=== PATIENT | female | born 1995 | race Caucasian/White ===

== ENCOUNTER 2017-12-30 22:47 | Emergency (ER) | payer SELFPAY ==
--- NOTE | 2017-12-30 23:47 | EDPHYS ---
Physician Documentation [facility] Name: Edie Preciado Age: 22 yrs Sex: Female : 1995 Arrival Date: 12/30/2017 Time: 22:48 Bed 10 Private MD: ED Physician Luis Allred HPI: 12/30 23:53 This 22 yrs old Female presents to ER via Ambulatory with complaints of Mouth snw Problem. 23:53 The patient presents with pain. The problem is located in the upper left first molar. snw Onset: The symptoms/episode began/occurred suddenly, yesterday. Duration: The symptoms are continuous. Associated signs and symptoms: The patient has no apparent associated signs or symptoms. Severity of symptoms: At their worst the symptoms were moderate, severe. It is unknown whether or not the patient has had similar symptoms in the past. The patient has not recently seen a physician. 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 - Social history:: Smoking status: Patient/guardian denies using tobacco, Patient uses alcohol, occasionally. Patient/guardian denies using street drugs. - Ebola Screening: : No symptoms or risks identified at this time. ROS: 23:50 Constitutional: Negative for fever, chills, and weight loss, Eyes: Negative for injury, snw pain, redness, and discharge, Neck: Negative for injury, pain, and swelling, Cardiovascular: Negative for chest pain, palpitations, and edema, Respiratory: Negative for shortness of breath, cough, wheezing, and pleuritic chest pain, Back: Negative for injury and pain, : Negative for injury, bleeding, discharge, and swelling, MS/Extremity: Negative for injury and deformity, Skin: Negative for injury, rash, and discoloration, Neuro: Negative for headache, weakness, numbness, tingling, and seizure. 23:50 ENT: Positive for dental pain, of the upper left first molar, Teeth pain 23:50 Abdomen/GI: Positive for chronic abdominal pain and diarrhea. Exam: 23:50 Constitutional: This is a well developed, well nourished patient who is awake, alert, snw and in no acute distress. Head/Face: Normocephalic, atraumatic. Eyes: Pupils equal round and reactive to light, extra-ocular motions intact. Lids and lashes normal. Conjunctiva and sclera are non-icteric and not injected. Cornea within normal limits. Periorbital areas with no swelling, redness, or edema. ENT: Nares patent. No nasal discharge, no septal abnormalities noted. Tympanic membranes are normal and external auditory canals are clear. Oropharynx with no redness, swelling, or masses, exudates, or evidence of obstruction, uvula midline. Mucous membranes moist. 1st upper left molar with pain and decreased mass than other molars Neck: Trachea midline, no thyromegaly or masses palpated, and no cervical lymphadenopathy. Supple, full range of motion without nuchal rigidity, or vertebral point tenderness. No Meningismus. Chest/axilla: Normal chest wall appearance and motion. Nontender with no deformity. No lesions are appreciated. Cardiovascular: Regular rate and rhythm with a normal S1 and S2. No gallops, murmurs, or rubs. Normal PMI, no JVD. No pulse deficits. Respiratory: Lungs have equal breath sounds bilaterally, clear to auscultation and percussion. No rales, rhonchi or wheezes noted. No increased work of breathing, no retractions or nasal flaring. Abdomen/GI: Soft, non-tender, with normal bowel sounds. No distension or tympany. No guarding or rebound. No evidence of tenderness throughout. Back: No spinal tenderness. No costovertebral tenderness. Full range of motion. Skin: Warm, dry with normal turgor. Normal color with no rashes, no lesions, and no evidence of cellulitis. MS/ Extremity: Pulses equal, no cyanosis. Neurovascular intact. Full, normal range of motion. Neuro: Awake and alert, GCS 15, oriented to person, place, time, and situation. Cranial nerves II-XII grossly intact. Motor strength 5/5 in all extremities. Sensory grossly intact. Cerebellar exam normal. Normal gait. Psych: Awake, alert, with orientation to person, place and time. Behavior, mood, and affect are within normal limits. Vital Signs: 23:12 BP 137 / 84; Pulse 83; Resp 16 S; Temp 98.3(O); Pulse Ox 97% on R/A; Weight 117.93 kg bb (R); Height 5 ft. 4 in. (162.56 cm) (R); Pain 8/10; 23:12 Body Mass Index 44.63 (117.93 kg, 162.56 cm) bb MDM: 23:03 Patient medically screened. snw 23:51 Data reviewed: vital signs, nurses notes. Data interpreted: Pulse oximetry: on room air snw is 97 %. Interpretation: normal. Counseling: I had a detailed discussion with the patient and/or guardian regarding: the historical points, exam findings, and any diagnostic results supporting the discharge/admit diagnosis, the need for outpatient follow up, to return to the emergency department if symptoms worsen or persist or if there are any questions or concerns that arise at home. ED course: will not rx clinda because of chronic diarrhea and abd pain. 12/30 23:34 Order name: Urine Dipstick--Ancillary (enter results) rg2 12/30 23:34 Order name: Urine --Ancillary (enter results) rg2 Administered Medications: 23:50 Drug: [place] 5 mg-325 mg 1 tabs Route: PO; jl3 12/31 00:08 Follow up: Response: Medication administered at discharge. jl3 00:05 Not Given ( changed order): penicillin VK 500 mg PO once jl3 Disposition: 03:34 Co-signature as Attending Physician, Luis Allred MD. pkl Disposition: 12/30/17 23:46 Discharged to Home. Impression: Dental caries, unspecified. - Condition is Stable. - Discharge Instructions: Dental Caries, Adult, Dental Pain, [id number], Diet and Dental Disease. - Prescriptions for chlorhexidine gluconate 0.12 % Mucous Membrane mouthwash - place 15 milliliter by MUCOUS MEMBRANE route 2 times per day after brushing teeth, swish in mouth for 30 seconds then spit out; 480 milliliter. penicillin V potassium 500 mg Oral tablet - take 1 tablet by ORAL route every 8 hours for 28 days; 30 tablet. Diclofenac Sodium 75 mg Oral Tablet Sustained Release - take 1 tablet by ORAL route 2 times per day; 30 tablet. - Medication Reconciliation Form, Thank You Letter, Antibiotic Education, Prescription Opioid Use form. - Follow up: Private Physician; When: Tomorrow; Reason: Recheck today's complaints, Continuance of care, Re-evaluation by your physician. Follow up: Emergency Department; When: As needed; Reason: Worsening of condition. Signatures: Dispatcher [employer] Luis Light MD MD pkl Therrien, Shelly, [employer] FR[employer] CROP FARMER-C [employer] F[employer]ER-Csnw Sheyla Tirado, RN RN Bharat Srinivasan, SAFETY PROFESSIONAL SAFETY PROFESSIONAL jl3 Corrections: (The following items were deleted from the chart) 00:10 12/30 23:46 12/30/2017 23:46 Discharged to Home. Impression: Dental caries, jl3 unspecified. Condition is Stable. Forms are Medication Reconciliation Form, Thank You Letter, Antibiotic Education, Prescription Opioid Use. Follow up: Private Physician; When: Tomorrow; Reason: Recheck today's complaints, Continuance of care, Re-evaluation by your physician. Follow up: Emergency Department; When: As needed; Reason: Worsening of condition. snw
--- NOTE | 2017-12-30 23:47 | ER ---
Nurse's Notes [facility] Name: Edie Preciado Age: 22 yrs Sex: Female : 1995 Arrival Date: 12/30/2017 Time: 22:48 Bed 10 Private MD: Diagnosis: Dental caries, unspecified Presentation: 12/30 23:00 Presenting complaint: Patient states: she is having left sided jaw pain since yesterday bb has been doing warm saltwater gargles and orajel but the pain is getting worse. Transition of care: patient was not received from another setting of care. Onset of symptoms was December 29, 2017. Risk Assessment: Do you want to hurt yourself or someone else? Patient reports no desire to harm self or others. Initial Sepsis Screen: Does the patient meet any 2 criteria? No. Patient's initial sepsis screen is negative. Does the patient have a suspected source of infection? No. Patient's initial sepsis screen is negative. Care prior to arrival: None. 23:00 Method Of Arrival: Ambulatory bb 23:00 Acuity: TANNER 5 bb Triage Assessment: 23:17 General: Appears uncomfortable, obese, well nourished, Behavior is cooperative. Pain: jl3 Complains of pain in gums, left buccal mucosa, upper left lateral incisor, upper left cuspid, upper left first bicuspid, upper left second bicuspid and upper left first molar. EENT: Reports pain in mouth and left jaw. Neuro: No deficits noted. Cardiovascular: No deficits noted. Respiratory: No deficits noted. GI: No deficits noted. : No deficits noted. Derm: No deficits noted. Musculoskeletal: No deficits noted. 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 - Social history:: Smoking status: Patient/guardian denies using tobacco, Patient uses alcohol, occasionally. Patient/guardian denies using street drugs. - Ebola Screening: : No symptoms or risks identified at this time. Screenin/06 00:08 Abuse screen: none noted. Nutritional screening: No deficits noted. Tuberculosis jl3 screening: No symptoms or risk factors identified. Fall Risk None identified. Assessment: 12/30 23:18 General: Pt states had toothache/mouth pain to upper left side of mouth on 12/29 jl3 (Sunday). Used Orajel \T\ swished with saltwater on that date, adn those measures eased pain some. States neither help today and pain is 10/10. Pt is in room, crying. Pain: Complains of pain in left buccal mucosa Pain does not radiate. Pain currently is 10 out of 10 on a pain scale. Quality of pain is described as aching, sharp, stabbing, gnawing, Pain began 1 day ago. Is lasting more than 1 hour. Alleviated by nothing. 12/31 00:09 Reassessment: Pt D/C, medicated per order, instructions given. jl3 Vital Signs: 12/30 23:12 BP 137 / 84; Pulse 83; Resp 16 S; Temp 98.3(O); Pulse Ox 97% on R/A; Weight 117.93 kg bb (R); Height 5 ft. 4 in. (162.56 cm) (R); Pain 8/10; 23:12 Body Mass Index 44.63 (117.93 kg, 162.56 cm) bb ED Course: 22:48 Patient arrived in ED. ds1 23:00 Arm band placed on Patient placed in an exam room, on a stretcher. bb 23:02 Alice [facility]C [facility] snw 23:02 Luis Allred MD is Attending Physician. snw 23:07 Bharat Graham LVN is Primary Nurse. jl3 23:12 Triage completed. bb 12/31 00:09 Patient has correct armband on for positive identification. jl3 00:09 No provider procedures requiring assistance completed. Patient did not have IV access jl3 during this emergency room visit. Administered Medications: 12/30 23:50 Drug: [place] 5 mg-325 mg 1 tabs Route: PO; jl3 12/31 00:08 Follow up: Response: Medication administered at discharge. jl3 00:05 Not Given ( changed order): penicillin VK 500 mg PO once jl3 Outcome: 12/30 23:46 Discharge ordered by . snw 12/31 00:09 Discharged to home ambulatory, with family. jl3 Condition: stable Discharge instructions given to patient, Prescriptions given X 3. 00:10 Patient left the ED. jl3 Signatures: Alice Harrison, ROLL CUTTING OPERATOR-C ROLL CUTTING OPERATOR-Haliw Abigail Millan ds1 Sheyla Tirado, RN RN bb Bharat Graham, GLOBAL MOBILITY SPECIALIST GLOBAL MOBILITY SPECIALIST jl3
[2017-12-31] MEDS ORDERED: HYDROCODONE/APAP 5/325 MG TAB ONE
[2017-12-31] MEDS ORDERED: AMOX/K CLAV 875 MG TAB ONE
[2017-12-31 00:25] LABS: Urine Blood TRACE (NEG); Urine Glucose NEGATIVE (NEG); Urine Protein TRACE (NEG); Urine Specific Gravity 1.025 (1.005-1.030)
== END 2017-12-31 00:10 | disposition home or self-care (01) ==
LOC: ER 22:47
DX: K02.9 Dental caries, unspecified (principal)
CPT/HCPCS: 81003; 81025; 99283

== ENCOUNTER 2024-01-10 16:55 | Emergency (ER) | payer OTHER, SELFPAY ==
[2024-01-10 17:35] LABS: Absolute Basophils 0.1 K/uL (0-0.5); Absolute Eosinophils 0.3 K/uL (0-0.5); Absolute Lymphocytes (CBC) 3.2 K/uL (0.7-4.9); Absolute Monocytes 0.7 K/uL (0.1-1.3); Absolute Neutrophil 8.1 K/uL (1.8-8.0); Basophils % 0.9 % (0-1.3); Eosinophils % 2.7 % (0-4.4); Hematocrit 35.3 % (36.0-45.0); Hemoglobin 11.6 g/dL (12.0-15.0); Lymphocytes % 25.4 % (15.3-44.8); MCHC 32.8 g/dL (32.0-36.0); MCV 79.3 fL (80-100); MPV 7.8 fL (7.6-11.3); Monocytes % 5.8 % (3.3-12.3); Neutrophils % 65.2 % (41.7-73.7); Nucleated Red Blood Cells % 0.1 % (0-0); Platelets 348 thou/uL (152-406); RBC Red Blood Cell Count 4.46 M/uL (3.86-4.86); Red Cell Distribution Width 14.7 % (12.1-15.2)
[2024-01-10 17:42] LABS: Specific Gravity 1.028 (1.005-1.030); Urine Bacteria <20 /HPF (<20); Urine Bilirubin NEGATIVE (Negative); Urine Blood 3+ (Negative); Urine Clarity Extremely Turbid (Clear); Urine Color Light-Yellow (Yellow); Urine Culture Reflex Order NOT NEEDED; Urine Glucose NEGATIVE (Negative); Urine Ketones NEGATIVE (Negative); Urine Microscopic Reflex YN ORDER UMIC; Urine Mucus Slight /HPF (None Seen); Urine Nitrite NEGATIVE (Negative); Urine Protein 1+ (Negative); Urine RBC >50 /HPF (None Seen); Urine Urobilinogen Normal (Normal)
[2024-01-10 17:45] LABS: Specific Gravity 1.028 (1.005-1.030)
[2024-01-10 17:55] LABS: Albumin 3.8 g/dL (3.4-5.0); Albumin/Globulin Ratio 0.8 (1.1-1.8); Anion Gap 9.5 mEq/L (5.0-15.0); Bilirubin Total 0.2 mg/dL (0.2-1.0); Globulin 4.5 g/dL (2.3-3.5); Potassium 3.5 mEq/L (3.5-5.1); Protein, Total 8.3 g/dL (6.4-8.2)
[2024-01-10] MEDS ORDERED: MORPHINE 4 MG/ML SYR ONE (18:29)
[2024-01-10] MEDS ORDERED: NA CHLORIDE 0.9% 1,000 ML ONE (18:29)
--- NOTE | 2024-01-10 18:53 | RAD REPORT ---
EXAM DESCRIPTION: CTAbdomen Pelvis W Contrast - 01/10/2024 6:41 pm CLINICAL HISTORY: Abdominal pain. diarrhea;Abd pain COMPARISON: No comparisons TECHNIQUE: Biphasic CT imaging of the abdomen and pelvis was performed with 100 ml non-ionic IV cont rast. All CT scans are performed using dose optimization technique as appropriate and may include automated exposure control or mA/KV adjustment according to patient size. FINDINGS: The lung bases are clear. The liver, spleen, pancreas, adrenal glands and kidneys are within normal limits. No bowel obstruction, free air, free fluid or abscess. The appendix is normal. No evidence of signi ficant lymphadenopathy. No suspicious bony findings. IMPRESSION: No acute intra-abdominal or pelvic finding.
--- NOTE | 2024-01-10 19:42 | EDPHYS ---
Physician Documentation [facility] Name: Edie Preciado Age: 28 yrs Sex: Female : 1995 Arrival Date: 01/10/2024 Time: 16:55 Bed 14 Private MD: ED Physician Douglas Bah HPI: 01/09 17:20 This 28 yrs old Female presents to ER via Ambulatory with complaints of Diarrhea - cp x8days. 17:20 The patient presents to the emergency department with diarrhea, that is continuous, cp abdominal pain. Onset: The symptoms/episode began/occurred 8 day(s) ago. Possible causes: reports HX of possible Crohn's Disease and/or Ulcerative Colitis. Has been seen by DR Walker in the past but unable to have colonoscopy done due to insurance issues. Denies fever, denies blood in stool. 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 - Infectious Disease History:: Denies. - Social history:: Smoking status: Patient denies any tobacco usage or history of. ROS: 17:30 Constitutional: Negative for body aches, chills, fever, poor PO intake, cp 17:30 Eyes: Negative for injury, pain, redness, and discharge, cp 17:30 ENT: Negative for drainage from ear(s), ear pain, sore throat, difficulty swallowing, difficulty handling secretions, 17:30 Cardiovascular: Negative for chest pain, 17:30 Respiratory: Negative for cough, shortness of breath, wheezing, 17:30 Abdomen/GI: Positive for abdominal pain, diarrhea, Negative for vomiting, constipation, black/tarry stool, rectal bleeding, 17:30 Neuro: Negative for altered mental status, headache, weakness, 17:30 All other systems are negative, Exam: 17:33 Constitutional: The patient appears in no acute distress, alert, awake, non-toxic, well cp developed, well nourished, obese, 17:33 Head/Face: Normocephalic, atraumatic. cp 17:33 Eyes: Periorbital structures: appear normal, Conjunctiva: normal, no exudate, no injection, Sclera: no appreciated abnormality, Lids and lashes: appear normal, bilaterally, 17:33 ENT: External ear(s): are unremarkable, Nose: is normal, Mouth: Lips: moist, Oral mucosa: pink and intact, moist, Posterior pharynx: is normal, airway is patent, no erythema, no exudate, 17:33 Chest/axilla: Inspection: normal, 17:33 Cardiovascular: Rate: normal, Rhythm: regular, 17:33 Respiratory: the patient does not display signs of respiratory distress, Respirations: normal, no use of accessory muscles, no retractions, labored breathing, is not present, Breath sounds: are clear throughout, no decreased breath sounds, no stridor, no wheezing, 17:33 Abdomen/GI: Inspection: obese Bowel sounds: active, all quadrants, Palpation: soft, in all quadrants, moderate abdominal tenderness, in all quadrants, rebound tenderness, is not appreciated, involuntary guarding, is not appreciated, 17:33 Back: CVA tenderness, is absent, 17:33 Neuro: Orientation: to person, place \T\ time. Mentation: is normal, Motor: moves all fours, strength is normal, Vital Signs: 17:02 BP 136 / 86; Pulse 85; Resp 18; Temp 98.2(TE); Pulse Ox 98% on R/A; Weight 142.88 kg; ld1 Height 5 ft. 5 in. ; Pain 7/10; 19:05 BP 124 / 80; Pulse 80; Resp 17; Temp 98; Pulse Ox 99% on R/A; rg5 17:02 Body Mass Index 52.42 (142.88 kg, 165.1 cm) ld1 17:02 Pain Scale: Adult ld1 MDM: 17:12 Patient medically screened. cp 19:40 Data reviewed: vital signs, nurses notes, lab test result(s), radiologic studies, CT cp scan, and as a result, I will discharge patient. 19:40 Differential diagnosis: gastritis, cholecystitis, appendicitis, diverticulitis, viral cp gastroenteritis, gastroenteritis, colitis. I considered the following discharge prescriptions or medication management in the emergency department Medications were administered in the Emergency Department. See MAR. Counseling: I had a detailed discussion with the patient and/or guardian regarding the historical points, exam findings, and any diagnostic results supporting the discharge/admit diagnosis, lab results, radiology results, the need for outpatient follow up, for definitive care, a assembler wet wash. Response to treatment: the patient's symptoms have mildly improved after treatment, and as a result, I will discharge patient. Special discussion: Based on the patient's Hx, exam, and Dx evaluation, there is no indication for emergent surgery or inpatient Tx. It is understood by the patient/guardian that if the Sx's persist or worsen they need to return immediately for re-evaluation. 01/09 17:13 Order name: CBC with Diff; Complete Time: 17:59 cp 01/09 19:14 Interpretation: Normal except: WBC 12.50; HGB 11.6; HCT 35.3; MCV 79.3; MCH 26.0; NEUT cp A 8.1. 01/09 17:13 Order name: CMP; Complete Time: 17:59 cp 01/09 17:13 Order name: Lipase; Complete Time: 17:59 cp 01/09 17:13 Order name: Test, Urine; Complete Time: 17:59 cp 01/09 17:13 Order name: Urinalysis w/ reflexes; Complete Time: 17:59 cp 01/09 18:01 Order name: CT Abd/Pelvis - IV Contrast Only; Complete Time: 19:14 cp 01/09 17:13 Order name: IV Saline Lock; Complete Time: 17:29 cp 01/09 17:13 Order name: Labs collected and sent; Complete Time: 17:29 cp Administered Medications: 18:35 Drug: morphine IVP or IV 4 mg IVP once over 4 mins Route: IVP; Infused Over: 4 mins; kc6 Site: right antecubital; 19:53 Follow up: Response: No adverse reaction; Pain is decreased rg5 18:35 Drug: NS 0.9% IV 1000 ml IV at 1 bolus Per protocol; 1000 mL bolus Route: IV; Rate: 1 kc6 bolus; Site: right antecubital; 19:54 Follow up: Response: Adverse reaction, Physician notified; IV Status: Completed infusionrg5 19:30 Drug: Loperamide PO 4 mg PO once Route: PO; rg5 20:01 Follow up: Response: No adverse reaction rg5 20:08 Drug: Ketorolac IVP 30 mg IVP once Route: IVP; Site: right antecubital; rg5 20:13 Follow up: Response: No adverse reaction rg5 Disposition Summary: 01/10/24 19:41 Discharge Ordered Notes: Location: Home cp Problem: new cp Symptoms: have improved cp Condition: Stable cp Diagnosis - Abdominal pain, unspecified cp - Diarrhea, unspecified cp Followup: cp - With: Private Physician - When: 2 - 3 days - Reason: Recheck today's complaints Discharge Instructions: - Discharge Summary Sheet cp - Abdominal Pain, Adult cp - Food Choices to Help Relieve Diarrhea, Adult cp - Diarrhea, Adult cp Forms: - Medication Reconciliation Form cp - Antibiotic Education cp - Prescription Opioid Use cp - Patient Portal Instructions cp - Leadership Thank You Letter cp Prescriptions: - Zofran 4 mg Oral Tablet - take 1 tablet ORAL route every 12 hours As needed; 20 tablet; Refills: 0, cp Product Selection Permitted - dicyclomine 20 mg Oral tablet - take 1 tablet ORAL route 4 times per day; 30 tablet; Refills: 0, Product cp Selection Permitted Signatures: Dispatcher [employer] EDMS Douglas Burciaga PA PA cp Shonda Stroud RN RN ld1 Amber Robison RN RN kc6 Wayne Dolan RN RN rg5 Corrections: (The following items were deleted from the chart) 17:13 17:13 CBC+H.LAB.BRZ ordered. EDMS EDMS 17:13 17:13 COMPREHENSIVE METABOLIC PANEL+C.LAB.BRZ ordered. EDMS EDMS 17:13 17:13 LIPASE+C.LAB.BRZ ordered. EDMS EDMS 17:13 17:13 Test, Urine+UC.LAB.BRZ ordered. EDMS EDMS 17:13 17:13 Urinalysis+U.LAB.BRZ ordered. EDMS EDMS 18:01 18:01 Ova and Parasites+MR.LAB.BRZ ordered. EDMS EDMS 18:01 18:01 Rotavirus Antigen+BA.LAB.BRZ ordered. EDMS EDMS 18:01 18:01 Stool Culture+BA.LAB.BRZ ordered. EDMS EDMS 18:01 18:01 C.difficile GDH Ag \T\ Toxin AB+LAB.BRZ ordered. EDMS EDMS 18:01 18:01 Abdomen Pelvis W Con+CT.RAD.BRZ ordered. EDMS EDMS
--- NOTE | 2024-01-10 19:42 | ER ---
Nurse's Notes [facility] Name: Edie Preciado Age: 28 yrs Sex: Female : 1995 Arrival Date: 01/10/2024 Time: 16:55 Bed 14 Private MD: Diagnosis: Abdominal pain, unspecified;Diarrhea, unspecified Presentation: 01/09 17:02 Chief complaint: Patient states: Diarrhea X 8 days. ABD pain. Coronavirus screen: At ld1 this time, the client does not indicate any symptoms associated with coronavirus-19. Ebola Screen: No symptoms or risks identified at this time. Initial Sepsis Screen: Does the patient meet any 2 criteria? No. Patient's initial sepsis screen is negative. Does the patient have a suspected source of infection? No. Patient's initial sepsis screen is negative. Risk Assessment: Do you want to hurt yourself or someone else? Patient reports no desire to harm self or others. Onset of symptoms was January 10, 2024. 17:02 Method Of Arrival: Ambulatory ld1 17:02 Acuity: TANNER 3 ld1 Triage Assessment: 17:02 General: Appears in no apparent distress. comfortable, Behavior is calm, cooperative, ld1 appropriate for age. Pain: Complains of pain in abdomen Pain does not radiate. Pain currently is 8 out of 10 on a pain scale. Quality of pain is described as throbbing, Pain began suddenly, Is continuous. EENT: No signs and/or symptoms were reported regarding the EENT system. Neuro: Level of Consciousness is awake, alert, obeys commands, Oriented to person, place, time, situation. Cardiovascular: Capillary refill < 3 seconds Patient's skin is warm and dry. Respiratory: Airway is patent Respiratory effort is even, unlabored. GI: Abdomen is round obese, Reports lower abdominal pain, upper abdominal pain, diarrhea. : No signs and/or symptoms were reported regarding the genitourinary system. Derm: No signs and/or symptoms reported regarding the dermatologic system. Musculoskeletal: No signs and/or symptoms reported regarding the musculoskeletal system. DIRECTOR REGULATORY AGENCY: 19:05 LMP N/A - , Not rg5 Historical: - Allergies: 17:04 No Known Allergies; ld1 - PMHx: 17:04 Depressive disorder; PTSD; Anxiety; ld1 - Immunization history:: Adult Immunizations up to date. - Infectious Disease History:: Denies. - Social history:: Smoking status: Patient denies any tobacco usage or history of. Screenin:18 [facility] ED Fall Risk Assessment (Adult) History of falling in the last 3 months, kc6 including since admission No falls in past 3 months (0 pts) Confusion or Disorientation No (0 pts) Intoxicated or Sedated No (0 pts) Impaired Gait No (0 pts) Mobility Assist Device Used No (0 pt) Altered Elimination No (0 pt) Score/Fall Risk Level 0 - 2 = Low Risk. Abuse screen: Denies threats or abuse. Denies injuries from another. Nutritional screening: No deficits noted. Tuberculosis screening: No symptoms or risk factors identified. Assessment: 18:20 General: Appears in no apparent distress. comfortable, obese, well groomed, well kc6 developed, Behavior is calm, cooperative, appropriate for age. Pain: Complains of pain in abdomen diffusely. Neuro: Level of Consciousness is awake, alert, obeys commands, Oriented to person, place, time, situation, Appropriate for age. Cardiovascular: Capillary refill < 3 seconds. Respiratory: Airway is patent Trachea midline Respiratory effort is even, unlabored, Respiratory pattern is regular, symmetrical. GI: Abdomen is round non-distended, obese, Last BM was January 10, 2024. Bowel sounds present X 4 quads. Abd is soft X 4 quads Abdomen is tender to palpation in abdomen diffusely Reports diarrhea, Patient currently denies nausea, vomiting. : No signs and/or symptoms were reported regarding the genitourinary system. EENT: No signs and/or symptoms were reported regarding the EENT system. Derm: No signs and/or symptoms reported regarding the dermatologic system. Skin is intact, is healthy with good turgor, Skin is pink, warm \T\ dry. Musculoskeletal: No signs and/or symptoms reported regarding the musculoskeletal system. Circulation, motion, and sensation intact. Capillary refill < 3 seconds, Range of motion: intact in all extremities. 19:05 Reassessment: Patient and/or family updated on plan of care and expected duration. Pain rg5 level reassessed. Patient is alert, oriented x 3, equal unlabored respirations, skin warm/dry/pink. Patient states feeling better. Patient states symptoms have improved. Vital Signs: 17:02 BP 136 / 86; Pulse 85; Resp 18; Temp 98.2(TE); Pulse Ox 98% on R/A; Weight 142.88 kg; ld1 Height 5 ft. 5 in. ; Pain 7/10; 19:05 BP 124 / 80; Pulse 80; Resp 17; Temp 98; Pulse Ox 99% on R/A; rg5 17:02 Body Mass Index 52.42 (142.88 kg, 165.1 cm) ld1 17:02 Pain Scale: Adult ld1 ED Course: 16:59 Patient arrived in ED. ra3 16:59 Douglas Burciaga PA is PHCP. cp 16:59 Douglas Bah MD is Attending Physician. cp 17:02 Arm band placed on right wrist. ld1 17:03 Triage completed. ld1 17:29 CBC with Diff Sent. bc6 17:29 CMP Sent. bc6 17:29 Lipase Sent. bc6 17:29 Test, Urine Sent. 6 17:29 Urinalysis w/ reflexes Sent. 6 17:29 Initial lab(s) drawn, by me, sent to lab. Inserted saline lock: 20 gauge in right 6 antecubital area, using aseptic technique. Blood collected. Flushed with 10 mL NS. 18:18 Amber Robison, RN is Primary Nurse. [facility] 18:18 Patient has correct armband on for positive identification. Bed in low position. Call kc6 light in reach. Side rails up X 1. Pulse ox on. NIBP on. Door closed. Noise minimized. Lights dimmed. Pillow given. 18:43 CT Abd/Pelvis - IV Contrast Only In Process Unspecified. EDMS 20:20 Awaiting ED provider evaluation, Awaiting: family wants to talk to Dr. Olvin Cole rg5 before going home. 20:20 No provider procedures requiring assistance completed. IV discontinued, bleeding rg5 controlled, No redness/swelling at site. Pressure dressing applied. 20:22 Provided Education on: needs for ff-up with GI doctor. rg5 Administered Medications: 18:35 Drug: morphine IVP or IV 4 mg IVP once over 4 mins Route: IVP; Infused Over: 4 mins; kc6 Site: right antecubital; 19:53 Follow up: Response: No adverse reaction; Pain is decreased rg5 18:35 Drug: NS 0.9% IV 1000 ml IV at 1 bolus Per protocol; 1000 mL bolus Route: IV; Rate: 1 kc6 bolus; Site: right antecubital; 19:54 Follow up: Response: Adverse reaction, Physician notified; IV Status: Completed infusionrg5 19:30 Drug: Loperamide PO 4 mg PO once Route: PO; rg5 20:01 Follow up: Response: No adverse reaction rg5 20:08 Drug: Ketorolac IVP 30 mg IVP once Route: IVP; Site: right antecubital; rg5 20:13 Follow up: Response: No adverse reaction rg5 Medication: 19:05 VIS not applicable for this client. rg5 Outcome: 19:41 Discharge ordered by . karla 20:50 Patient left the ED. rg5 Signatures: Dispatcher [employer] EDMS Douglas Burciaga PA PA cp Sims, Lauren RN RN ld1 Amber Robison RN RN kc6 Monica Washington Ruby ra3 Wayne Dolan RN RN rg5
[2024-01-10] MEDS ORDERED: LOPERAMIDE HCL 2 MG CAPSULE ONE (19:55)
[2024-01-10] MEDS ORDERED: KETOROLAC 30 MG/ML INJ ONE (20:09)
[2024-01-10 21:22] VITALS: BP 124/80; TEMP 98; O2SAT 99
== END 2024-01-10 20:50 | disposition home or self-care (01) ==
LOC: ER 16:55
DX: R19.7 Diarrhea, unspecified (principal); R10.9 Unspecified abdominal pain
CPT/HCPCS: 96361; 85025; 81001; 36415; 81025; 83690; 80053; 74177; 96375; 96374; 99284; Q9967; J7030